=== PATIENT | female | born 1955 | race Caucasian/White ===

== ENCOUNTER 2016-04-10 08:26 | Day surgery (SDC) | payer MEDICARE, BC ==
[2016-04-04 11:39] VITALS: BMI 29.5
[~2016-04-10 08:26] MED LIST: LACTATED RINGERS 1,000 ML IV SCH
[2016-04-10 09:13] VITALS: TEMP 97.1
[2016-04-10] MEDS ORDERED: LIDOCAINE 1% 20 ML VIAL (10MG/ML) FOR IV START INTRADERMA ONE (09:24)
[2016-04-10] MEDS ORDERED: fentaNYL (PF) 50 MCG/ML 2 ML AMP ONE (10:43)
[2016-04-10] MEDS ORDERED: PROPOFOL 10 MG/ML 20 ML VIAL IV ONE (10:43)
[2016-04-10] MEDS ORDERED: LIDOCAINE 1% INJ 10MG/ML (20 ML MDV) ONE (10:43)
--- NOTE | 2016-04-10 10:51 | P.GSHP ---
History of Present Illness H&P Date: 04/10/16 Chief Complaint: Abdominal pain, GERD, screening colonoscopy This a 60-year-old female referred from Andrea Morrison. Patient presents today for EGD and colonoscopy. She's had issues with GERD. And left sided abdominal pain and epigastric pain. Her last colonoscopy was approximately 8 years ago. - Constitutional Constitutional: Reports as per HPI Past Medical History Past Medical History: CVA/TIA, GERD/Reflux, Hyperlipidemia Additional Past Medical History / Comment(s): TIA August 2014 - occ. left leg and arm tingling, herniated disk back and neck, " sometimes it takes longer to get words out", hayfever, abdominal pain History of Any Multi-Drug Resistant Organisms: None Reported Past Surgical History: Bladder Surgery, Breast Surgery, Cholecystectomy, Hysterectomy Additional Past Surgical History / Comment(s): RIGHT BREAST BX, bladder suspension, surgery as for colapsed lung Past Anesthesia/Blood Transfusion Reactions: No Reported Reaction Past Psychological History: Anxiety, Depression Additional Psychological History / Comment(s): . Smoking Status: Current some day smoker Past Alcohol Use History: Occasional Additional Past Alcohol Use History / Comment(s): stated a pack will last a week Past Drug Use History: None Reported - Past Family History Father Family Medical History: Cancer Additional Family Medical History / Comment(s): stomach. Mother Family Medical History: Cancer Additional Family Medical History / Comment(s): breast Sister(s) Family Medical History: Cancer Additional Family Medical History / Comment(s): cancer Medications and Allergies Home Medications Medication Instructions Recorded Confirmed Type ALPRAZolam [Xanax] 1 mg PO TID 09/14/14 04/10/16 History Simvastatin [Zocor] 20 mg PO HS 09/14/14 04/10/16 History Ibuprofen [Motrin] 800 mg PO BID PRN 12/13/15 04/04/16 History Meloxicam [Mobic] 7.5 mg PO DAILY 12/13/15 04/04/16 History Topiramate [Topamax] 50 mg PO DAILY 12/13/15 04/10/16 History Fluticasone Nasal [place] [Flonase 2 spr EA NOSTRIL DAILY PRN 03/25/16 04/10/16 History Nasal [place]] Hydrocodone/Acetaminophen [[place] 1 tab PO TID PRN 04/04/16 04/10/16 History 10-325] Multivitamins, Thera [Multivitamin] 2 tab PO DAILY 04/04/16 04/10/16 History Allergies Allergy/AdvReac Type Severity Reaction Status Date / Time No Known Allergies Allergy Verified 04/04/16 11:27 Surgical - Exam Vital Signs Temp Pulse Resp BP Pulse Ox 97.1 F L 86 18 147/84 99 04/10/16 09:12 04/10/16 09:12 04/10/16 09:12 04/10/16 09:12 04/10/16 09:12 - General well developed, no distress - Eyes PERRL - ENT normal pinna - Neck no masses - Respiratory normal expansion - Cardiovascular Rhythm: regular - Abdomen Mild left upper quadrant pain. Abdomen: soft Assessment and Plan Plan: GERD, epigastric and left upper quadrant pain. We'll perform EGD and screening colonoscopy.
--- NOTE | 2016-04-10 11:26 | P.OP ---
Date of Procedure: 04/10/16 Preoperative Diagnosis: Abdominal pain, GERD, screening colonoscopy Postoperative Diagnosis: Duodenitis Mild antral gastritis Small had a hernia Esophagitis Mild diverticulosis Procedure(s) Performed: Colonoscopy EGD Anesthesia: MAC Surgeon: Geoff Desai Pathology: other (Duodenum, antrum, esophagus) Condition: stable Disposition: PACU Description of Procedure: The patient's placed on the endoscopy table in the lateral position. She received IV sedation. The gastroscope some placed oropharynx and passed into the esophagus and into the stomach. Scope was then placed through the pylorus. The first and second portion of the duodenum appeared inflamed. A biopsies performed. Scope was then brought back the antrum this. Mildly inflamed. The scope was unretroflexed and remainder stomach appeared normal. There was a small hiatal hernia. The GE junction was at 40 cm. The distal esophagus appeared mildly inflamed and this was biopsied. The proximal esophagus appeared normal. Scope was withdrawn for patient. Next digital rectal exam was performed which revealed no abnormalities. The flexible colonoscope was then placed patient anus passed throughout the entire colon. The ileocecal valve was visualized. The cecum, ascending and transverse colon appeared normal. In the descending colon there is mild diverticular changes. The sigmoid colon had some mild diverticular changes. Scope was brought back the rectum and this appeared normal. Scope withdrawn the patient.
[2016-04-10 11:41] VITALS: BP 150/78; PULSE 70; RESP 18
== END 2016-04-10 12:05 | disposition home or self-care (01) ==
LOC: ORWHC2ENDO 08:26
PROVIDERS: ATTEND Surgery
DX: Z12.11 Encounter for screening for malignant neoplasm of colon (principal); K57.30 Diverticulosis of large intestine without perforation or abscess without bleeding; K44.9 Diaphragmatic hernia without obstruction or gangrene; K29.80 Duodenitis without bleeding; F17.200 Nicotine dependence, unspecified, uncomplicated; E78.5 Hyperlipidemia, unspecified; Z86.73 Personal history of transient ischemic attack (TIA), and cerebral infarction without residual deficits; F41.9 Anxiety disorder, unspecified; F32.9 Major depressive disorder, single episode, unspecified
CPT/HCPCS: 88305; 88342; 43239; J2001; J3010; J2704; G0121; 99153

== ENCOUNTER → 2017-06-25 | Outpatient (CLI) | payer MEDICARE, BC ==
--- NOTE | 2017-06-25 16:19 | XR ---
EXAMINATION TYPE: XR chest 2V DATE OF EXAM: 06/25/2017 COMPARISON: NONE HISTORY: Chest pain TECHNIQUE: Frontal and lateral views of the chest are obtained. FINDINGS: Patient is rotated. There is no focal air space opacity, pleural effusion, or pneumothorax seen. The cardiac silhouette size is within normal limits. The osseous structures are intact. IMPRESSION: No acute cardiopulmonary process.
[2017-06-25 16:23] LABS: Basophils % (A) 0 %; Eosinophils # (A) 0.1 k/uL (0-0.7); Eosinophils % (A) 1 %; HCT 42.1 % (34.0-46.0); HGB 13.7 gm/dL (11.4-16.0); Lymphocytes # (A) 2.1 k/uL (1.0-4.8); Lymphocytes % (A) 30 %; MCHC 32.5 g/dL (31.0-37.0); MCV 98.5 fL (80.0-100.0); Mean Platelet Volume 8.2; Monocytes # (A) 0.3 k/uL (0-1.0); Monocytes % (A) 5 %; Neutrophils # (A) 4.4 k/uL (1.3-7.7); Neutrophils % (A) 62 %; Platelet Count 295 k/uL (150-450); RBC 4.28 m/uL (3.80-5.40); RDW 13.2 % (11.5-15.5)
[2017-06-25 16:30] LABS: ALT 20 U/L (9-52); AST 27 U/L (14-36); Albumin 4.4 g/dL (3.5-5.0); Alkaline Phosphatase 102 U/L (38-126); Anion Gap 10 mmol/L; Blood Urea Nitrogen 10 mg/dL (7-17); Calcium 9.9 mg/dL (8.4-10.2); Carbon Dioxide 28 mmol/L (22-30); Chloride 105 mmol/L (98-107); Cholesterol 215 mg/dL (<200); Glucose 94 mg/dL (74-99); HDL Cholesterol 55 mg/dL (40-60); LDL Cholesterol,Calculated 97 mg/dL (0-99); Potassium 4.5 mmol/L (3.5-5.1); Sodium 143 mmol/L (137-145); Total Bilirubin 0.3 mg/dL (0.2-1.3); Total Protein 7.3 g/dL (6.3-8.2); Triglycerides 314 mg/dL (<150)
[2017-06-26 04:02] LABS: Hemoglobin A1C 5.6 % (4.0-6.0)
== END | disposition home or self-care (01) ==
LOC: RADXRMAIN 15:36
PROVIDERS: ATTEND Family Medicine
DX: R07.9 Chest pain, unspecified (principal); I10 Essential (primary) hypertension; Z79.899 Other long term (current) drug therapy
CPT/HCPCS: 36415; 71046; 80053; 80061; 83036; 84443; 85025; 85379

== ENCOUNTER → 2017-11-03 | Outpatient (CLI) | payer MEDICARE, BC ==
--- NOTE | 2017-11-03 17:23 | BD ---
EXAMINATION TYPE: Axial Bone Density DATE OF EXAM: 11/03/2017 COMPARISON: 12.13.2012 CLINICAL HISTORY: 62 YR OLD FEMALE.....ICD-10 CODE: N95.1 POST MENOPAUSAL SYMPTOMS Height: 60.1 Weight: 160 FRAX RISK QUESTIONS: History of Fracture in Adulthood: YES Secondary Osteoporosis: YES 3. 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 Bone mineral density as measured about the Lumbar spine is: ----- L1-L4(G/cm2): 0.978 T Score Values are as follows: ----- L1: -1.0 ----- L2: -2.0 ----- L3: -1.8 ----- L4: -2.0 ----- L1-L4: -1.7 Bone mineral density has: Decreased -8.2% since study of: 12.13.2012 Bone mineral density about the R hip (g/cm2): 0.722 Bone mineral density about the L hip (g/cm2): 0.793 T Score values are as follows: -----R Neck: -2.7 -----L Neck: -2.3 -----R Total: -2.3 -----L Total: -1.7 Bone mineral density has: Decreased -5.6% since study of: 12.13.2012 FRAX%s: THERE IS A 22.3% CHANCE OF A MAJOR OSTEOPOROTIC FX AND A 2.9% FOR HIP FX.....PROBABILITY O F FX IN 10 YRS TIME IMPRESSION: Osteoporosis (T Score less than -2.5). There is increased fracture risk and therapy is usually indicated based on age. Re-Screen 1-2 years. NOTE: T-SCORE=SD OF THE YOUNG ADULT MEAN.
== END | disposition home or self-care (01) ==
LOC: RADBDWWP 15:12
PROVIDERS: ATTEND Family Medicine
DX: M81.0 Age-related osteoporosis without current pathological fracture (principal)
CPT/HCPCS: 77080

== ENCOUNTER → 2018-01-21 | Outpatient (CLI) | payer MEDICARE, BC ==
--- NOTE | 2018-01-21 18:12 | CT ---
EXAMINATION TYPE: CT abdomen pelvis wo con DATE OF EXAM: 01/21/2018 COMPARISON: 03/25/2016 HISTORY: Left side groin and back pain. CT DLP: 511.8 mGycm Automated exposure control for dose reduction was used. TECHNIQUE: Helical acquisition of images was performed from the lung bases through the pelvis. FINDINGS: Lung bases are clear. There is no pleural effusion. Heart size is normal. There is no pericardial eff usion. There is small hiatal hernia. Liver spleen pancreas appear normal. Bile ducts are not dilated. There is no adrenal mass. Kidneys sh ow normal size and contour. There is no hydronephrosis. Ureters are not dilated. There is no retroper itoneal adenopathy. There are multiple sigmoid diverticula. There is no evidence of diverticulitis. T here is no evidence of bowel obstruction. Appendix is not seen. There is no sign of appendicitis. There is small umbilical hernia that contains fat. There is no inguinal hernia. There is no mesenteri c adenopathy or edema. There is no evidence of free air. Lumbar spine and bony pelvis appear intact. There is no ascites. IMPRESSION: THERE IS SIGMOID DIVERTICULOSIS WITHOUT DIVERTICULITIS. NO SIGN OF ACUTE ABDOMEN AND PELVIS. NO ADVER SE CHANGE COMPARED TO OLD EXAM.
== END | disposition home or self-care (01) ==
LOC: RADCTMAIN 15:57
PROVIDERS: ATTEND Family Medicine
DX: K57.30 Diverticulosis of large intestine without perforation or abscess without bleeding (principal)
CPT/HCPCS: 74176

== ENCOUNTER 2018-03-18 07:25 | Day surgery (SDC) | payer MEDICARE, BC ==
[2018-03-16 11:53] VITALS: BMI 29.7
[~2018-03-18 07:25] MED LIST changes: +LIDOCAINE 1% 20 ML VIAL (10MG/ML) FOR IV START INTRADERMA PRN
[2018-03-18 07:39] VITALS: TEMP 96.8
[2018-03-18] MEDS ORDERED: LIDOCAINE 1% INJ 10MG/ML (20 ML MDV) ONE (08:35)
[2018-03-18] MEDS ORDERED: PROPOFOL 10 MG/ML 20 ML VIAL IV ONE (08:35)
[2018-03-18 09:28] VITALS: RESP 16
--- NOTE | 2018-03-18 09:33 | P.PCN ---
Date of Procedure: 03/18/18 Description of Procedure: BRIEF HISTORY: Patient is a 62-year-old pleasant who presents for follow-up after being seen in evaluation in the clinic for suspected diverticulitis. The patient had presented with complaints of abdominal pain and was empirically treated with antibiotic therapy. Her symptoms continued which included both abdominal pain as well as an increased frequency of bowel movements. The patient subsequently had computed tomography scan in evaluation which showed diverticulosis without diverticulitis. The patient was previously tried on Questran therapy which cause constipation as well as Bentyl therapy for her abdominal pain which she also reports causes constipation. Her last colonoscopy was 2 years ago per her history with polypectomy at that time. PROCEDURE PERFORMED: Colonoscopy with random biopsy and polypectomy. PREOPERATIVE DIAGNOSIS: Diverticulitis, change in bowel habits, abdominal pain. ESTIMATED BLOOD LOSS: Minimal. IV sedation per Anesthesia. PROCEDURE: After informed consent was obtained, the patient, was brought into the endoscopy unit. IV sedation was administered by Anesthesia under continuous monitoring. Digital rectal examination was normal. Initially the Olympus CF- 190 flexible video colonoscope was then inserted in the rectum, gradually advanced into the cecum without any difficulty. Careful examination was performed as the scope was gradually being withdrawn. Ileocecal valve and the appendiceal orifice were visualized and appeared normal. Prep was excellent. Mucosa of the cecum, ascending colon, transverse colon, descending colon, sigmoid colon, and rectum was significant for scattered areas of mild erythema and superficial ulceration with biopsies taken in the right, transverse and left colon as well as rectum. There was a small 4 mm polyp in the ascending colon which was removed with cold forceps Retroflexion was performed in the rectum and no lesions were seen. The patient tolerated the procedure well. IMPRESSION: Scattered areas of mild erythema and superficial ulceration throughout the colon with random biopsies taken in the right, transverse, and left colon as well as the rectum. Ascending polyp removed via cold snare. RECOMMENDATIONS: Findings of this examination were discussed with the patient internal . Await pathology. Follow up in the GI clinic. Avoid NSAID use. Further management pending findings of biopsies..
[2018-03-18 09:48] VITALS: BP 146/80; PULSE 68
== END 2018-03-18 10:13 | disposition home or self-care (01) ==
LOC: ORWHC2ENDO 07:25
PROVIDERS: ATTEND Internal Medicine
DX: D12.2 Benign neoplasm of ascending colon (principal); K63.3 Ulcer of intestine; K57.90 Diverticulosis of intestine, part unspecified, without perforation or abscess without bleeding; E78.5 Hyperlipidemia, unspecified; M54.2 Cervicalgia; M54.5 Low back pain; G89.29 Other chronic pain; K21.9 Gastro-esophageal reflux disease without esophagitis; Z79.1 Long term (current) use of non-steroidal anti-inflammatories (NSAID); Z79.899 Other long term (current) drug therapy; Z79.891 Long term (current) use of opiate analgesic; Z91.09 Other allergy status, other than to drugs and biological substances; Z86.73 Personal history of transient ischemic attack (TIA), and cerebral infarction without residual deficits
CPT/HCPCS: 88305; 45380; J2001; J2704

== ENCOUNTER → 2018-08-25 | Day surgery (SDC) | payer MEDICARE, BC ==
[2018-08-25 13:03] VITALS: RESP 16; BMI 28.7
--- NOTE | 2018-08-25 16:02 | USB ---
EXAMINATION TYPE: US biopsy breast VAD RT DATE OF EXAM: 08/25/2018 CLINICAL HISTORY: R92.8 ABN MAMM. TECHNIQUE: Ultrasound guided core biopsy of right breast. COMPARISON: Ultrasound same day FINDINGS: After informed consent the skin overlying a suitable path to the patient's right breast mas s at the approximate 3:00 position was localized with ultrasound. 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 Lidocaine was used for local anesthesia. Under ultrasound guidance, a 12-gauge vacuum assisted biopsy gun device was used to obtain 5 core sriram ples. Following this, a biopsy clip was left in lesion. The patient tolerated the procedure well without any immediate complication. The patient was kept in the radiology department for short stay after the procedure and then discharged home in stable condi tion. IMPRESSION: Successful, uncomplicated ultrasound guided core biopsy of area of concern in the right b reast, full pathology results to follow.
[2018-08-25 16:09] VITALS: BP 125/81; PULSE 73; TEMP 97.5
--- NOTE | 2018-08-26 08:34 | USB ---
Reason for exam: clinical finding. History: Family history of breast cancer in mother at age 50, breast cancer in sister at age 50, and breast cancer in cousin at age 40. Indicated problem(s): lump or thickening in the right breast. Physical Findings: Nurse Summary: Patient complains of right breast lump x 1 months, tender with palpation (nurse mj). US Breast Limited RT Right limited breast ultrasound including focal area of concern, retroareolar and axilla demonstrates a 0.9 x 0.4 x 0.9cm hypoechoic lesion at 4 o'clock. These results were verbally communicated with the patient and result sheet given to the patient on 08/25/18. ASSESSMENT: Suspicious, BI-RAD 4 RECOMMENDATION: Ultrasound core biopsy of the right breast. Scheduled for stereotactic core biopsy today, 08/25/18, will do ultrasound core biopsy to follow.
--- NOTE | 2018-08-26 12:19 | MM ---
EXAMINATION TYPE: MG stereo VAD BX RT DATE OF EXAM: 08/25/2018 COMPARISON: Mammogram 07/22/2018 outside institution CLINICAL HISTORY: Abnormal mammogram TECHNIQUE: Stereotactic guided core biopsy of right breast. FINDINGS: The procedure of stereotactic guided core biopsy was explained to the patient. Benefits, a lternatives, and risks were discussed. An informed consent was then obtained. The shortness pathway for biopsy was chosen. Shortness pathway was cephalad to caudal approach. I pe rformed the localization using the stereotactic mammotome unit. Skin overlying a quantity calcificati ons was localized and the overlying skin prepped and draped. Lidocaine used for local anesthesia. 5 c ore specimens were subsequently obtained through the 13-gauge needle. Following the procedure hemosta sis achieved and clip deployment. No immediate complication. The patient tolerated the procedure well without any immediate complication. The patient was kept in the radiology department for short stay after the procedure and then discharged home in stable condi tion. Targeted calcifications are identified in specimen mammogram. Post biopsy mammogram shows the clip to appear in satisfactory position relative to the targeted area of concern on the preprocedure images. IMPRESSION: SUCCESSFUL, UNCOMPLICATED STEREOTACTIC GUIDED CORE BIOPSY OF AREA OF CONCERN IN THE right BREAST, FUL L PATHOLOGY RESULTS TO FOLLOW.
== END ==
LOC: RADUSWWP 11:11
PROVIDERS: ATTEND Surgery
DX: C50.311 Malignant neoplasm of lower-inner quadrant of right female breast (principal); Z85.3 Personal history of malignant neoplasm of breast; D24.1 Benign neoplasm of right breast; N62 Hypertrophy of breast; R92.1 Mammographic calcification found on diagnostic imaging of breast; Z80.3 Family history of malignant neoplasm of breast; Z91.048 Other nonmedicinal substance allergy status
CPT/HCPCS: 88305; 88342; 88341; 19081; 19083; 76642; A4648 ×2; J2001

== ENCOUNTER → 2022-11-18 | Outpatient (CLI) | payer MEDICARE, BC ==
--- NOTE | 2022-11-18 15:16 | XR ---
EXAMINATION TYPE: XR ankle complete LT DATE OF EXAM: 11/18/2022 3:07 PM INDICATION: Patient age:Female; 67 years old; Reason for study: S93.402A SPRAIN OF UNSPECIFIED LIGAMENT OF LEFT AN; [facility]. COMPARISON: None TECHNIQUE: The left ankle is imaged in frontal, lateral and oblique projections. FINDINGS/IMPRESSION: Spiral fracture through the left distal fibula with 1-2 mm displacement. No additional fractures iden tified. Remote injury to the medial malleolus deltoid ligament.
== END | disposition home or self-care (01) ==
LOC: RADXRMAIN 14:49
PROVIDERS: ATTEND Family Medicine
DX: S82.832A Other fracture of upper and lower end of left fibula, initial encounter for closed fracture (principal); S93.402A Sprain of unspecified ligament of left ankle, initial encounter; X58.XXXA Exposure to other specified factors, initial encounter

== ENCOUNTER → 2023-04-20 | Outpatient (CLI) | payer MEDICARE, BC ==
[2023-04-20 17:13] LABS: African American GFR (CKD) >90 (>60 ml/min/1.73 sqM); Blood Urea Nitrogen 8 mg/dL (7-17); Non-African American GFR(CKD) >90 (>60 ml/min/1.73 sqM)
== END | disposition home or self-care (01) ==
LOC: RADCTMAIN 16:14
PROVIDERS: ATTEND Family Medicine
DX: R91.8 Other nonspecific abnormal finding of lung field (principal)
CPT/HCPCS: 82565; 84520

== ENCOUNTER → 2023-04-22 | Outpatient (CLI) | payer MEDICARE, BC ==
--- NOTE | 2023-04-22 14:42 | CT ---
EXAMINATION TYPE: CT chest wo con CT DLP: 283.9 mGycm, Automated exposure control for dose reduction was used. DATE OF EXAM: 04/22/2023 1:14 PM COMPARISON: None CLINICAL INDICATION:Female, 68 years old with history of R91.8 LUNG MASS, lung mass TECHNIQUE: Multiple axial images were obtained through the chest. Sagittal and coronal reformats were created for review. Contrast used: mL of (None if empty) Oral contrast used: (None if empty) FINDINGS: LUNGS/ PLEURA: Mild emphysema changes are present. No focal consolidation, pneumothorax or pleural ef fusion. No lung masses visualized. AIRWAY: Patent and unremarkable. HEART: Size within normal limits. MEDIASTINUM: No gross evidence of adenopathy. VASCULATURE: No aortic aneurysm. MUSCULOSKELETAL: Moderate disc degeneration changes are present throughout the thoracolumbar spine. SOFT TISSUES/LYMPH NODES: Unremarkable. LOWER NECK: No significant findings. UPPER ABDOMEN: No significant findings. IMPRESSION: 1. No evidence for lung mass. No lymphadenopathy. 2. Mild emphysema changes. Follow up recommendations for incidental pulmonary nodules, if there are any, are per [employer] or [employer]. [email or web address]/[email or web address]?lang=us
== END | disposition home or self-care (01) ==
LOC: RADCTMAIN 12:50
PROVIDERS: ATTEND Family Medicine
DX: J43.9 Emphysema, unspecified (principal); R91.8 Other nonspecific abnormal finding of lung field
CPT/HCPCS: 71250

== ENCOUNTER → 2024-01-06 | Outpatient (CLI) | payer MEDICARE, BC ==
[2024-01-06 13:44] VITALS: BP 119/77; PULSE 79; RESP 20; TEMP 98.9
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
== END ==
LOC: PNWHC3 12:53
PROVIDERS: ATTEND Specialist
DX: M54.2 Cervicalgia
CPT/HCPCS: 99202

== ENCOUNTER → 2024-01-11 | Outpatient (CLI) | payer MEDICARE, BC ==
--- NOTE | 2024-01-11 19:48 | MR ---
EXAMINATION TYPE: MR cervical spine wo/w con DATE OF EXAM: 01/11/2024 4:44 PM CLINICAL INDICATION: Female, 68 years old with history of M50.30 OTHER CERVICAL DISC DEGENERATION, UN SP CERVICAL REGIO; [facility], COMPARISON: None. TECHNIQUE: Multi planar, multi sequence imaging was performed utilizing: T1-weighted, T2-weighted, an d turbo inversion recovery imaging of the cervical spine. IV Contrast: cc (none if empty) FINDINGS: Alignment: The cervical vertebral bodies have preserved heights. Alignment is within normal limits gi hyun patient positioning. Bones: Osteophytes and disc space narrowing most pronounced at the C5-C7 vertebral levels.No abnormal postcontrast enhancement. Cord: The spinal cord is unremarkable with regards to their signal intensity and morphology. No abnormal postcontrast enhancement. Discs: Intervertebral disc signal is maintained. C2-C3: No significant disc pathology. The spinal canal is patent. No neural foraminal stenosis. C3-C4: No significant disc pathology. The spinal canal is patent. Bilateral facet and uncovertebral joint arthropathy are present with mild right neural foraminal stenosis. The left neural foramen is p atent. C4-C5: No significant disc pathology. The spinal canal is patent. Bilateral facet and uncovertebral joint arthropathy are present with mild right neural foraminal stenosis. The left neural foramen is p atent. C5-C6: A disc osteophyte complex is present with mild spinal canal stenosis. Bilateral facet and unc overtebral joint arthropathy are present with mild to moderate bilateral neural foraminal stenosis. C6-C7: No significant disc pathology. The spinal canal is patent. No neural foraminal stenosis. C7-T1: No significant disc pathology. The spinal canal is patent. No neural foraminal stenosis. Other: None. IMPRESSION: 1. No evidence for disc herniation or significant spinal canal stenosis. No abnormal postcontrast enh ancement. 2. Mild disc degeneration with associated osteoarthritic changes. No foraminal stenosis worse at C5-C 6 with at least mild to moderate stenosis. [facility], Workstation: [id number], 01/11/2024 7:45 PM
== END | disposition home or self-care (01) ==
LOC: RADMRIMAIN 15:53
PROVIDERS: ATTEND Family Medicine
DX: M50.30 Other cervical disc degeneration, unspecified cervical region
CPT/HCPCS: 72156

== ENCOUNTER → 2024-01-25 | Outpatient (CLI) | payer MEDICARE, BC ==
[2024-01-25 10:49] VITALS: BP 112/74; PULSE 98; RESP 16; TEMP 99.5
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
== END ==
LOC: PNWHC3 01-20 13:50
PROVIDERS: ATTEND Specialist
DX: M54.12 Radiculopathy, cervical region
CPT/HCPCS: 99211

== ENCOUNTER 2024-02-12 09:41 | Day surgery (SDC) | payer MEDICARE, BC ==
[2024-02-09 14:25] VITALS: BMI 28.1
[2024-02-12 10:18] VITALS: RESP 16; TEMP 97
[2024-02-12] MEDS: IV FLUID CONTINUATION 1,000 ML IV ONE ×2 (10:18→11:38)
[2024-02-12] MEDS: LACTATED RINGERS 1,000 ML IV SCH (10:26)
[2024-02-12] MEDS ORDERED: ROPIVACAINE 5MG/ML 20ML VIAL ONE (11:13)
[2024-02-12] MEDS ORDERED: MIDAZOLAM 2 MG/2 ML VIAL ONE (11:13)
--- NOTE | 2024-02-12 11:31 | P.PCN ---
Date of Procedure: 02/12/24 Surgeon: Rico Thomason Pathology: none sent Condition: stable Disposition: PACU Description of Procedure: PROCEDURE: Bilateral medial branch block for the medial branches: C4,C5 and C6 with Fluroscopy [place] Diagnosis: Cervical spondylosis without myelopathy ANESTHESIA: Local with 1% lidocaine; IV moderate conscious sedation using 2 mg of Versed only Sedation time:[id number] EBL: Minimal PROCEDURE INDICATION: The patient with neck pain secondary to cervical arthropathy who had more than 50% relief of her pain with previous diagnostic cervical medial branch block. PROCEDURE DESCRIPTION / TECHNIQUE: The patient was seen and identified in the preoperative area. Risks, benefits, complications, and alternatives were discussed with the patient, the patient agreed to proceed with the procedure and signed the consent. IV was started. Vital signs remained stable throughout the procedure. Patient was taken to the OR and time out was completed. The patient was placed in the supine position on the procedure table. The cervical area was prepped and draped in the usual sterile fashion. Critical pause was taken. Vital signs were closely monitored during the procedure. Conscious sedation was used during the procedure to decrease patients anxiety. Using cross-table lateral fluoroscopy, the center of the trapezoid-shaped cervical pillars of C4, C5 and C6 were identified, marked, and localized with 1% lidocaine. Subsequently, a 25 guage3-1/2 inch [place]ke spinal needle was advanced guided by fluoroscopy to the target points mentioned above. after contacting bone at the above-mentioned target points I injected 0.5 MLS of ropivacaine 0.5% at each level. [place] were removed. the left side was done in the same manner.Skin was cleansed and bandages were applied. COMPLICATIONS: No acute complications. COMMENTS: A copy of needle placement was saved to the C-arm machine at the radiology department. DISPOSITION / PLANS: The patient was placed in a supine position and transferre d to the recovery area in a stable condition for observation and was discharged from the recovery room after meeting discharge criteria. Home discharge instructions given to the patient by the staff.
--- NOTE | 2024-02-12 11:43 | FL ---
Intraoperative/procedural fluoroscopic services were provided for cervical pain management injection. Total fluoroscopy time is 28.2 seconds with a total of 8 submitted images to PACS. Total DAP 0.51307 mGym2. Please see the operative note for further details. [facility], , 02/12/2024 11:41 AM
[2024-02-12 11:53] VITALS: BP 151/85; PULSE 73
== END 2024-02-12 12:09 | disposition home or self-care (01) ==
LOC: ORPAIN 09:41
PROVIDERS: ATTEND Anesthesiology
DX: M47.812 Spondylosis without myelopathy or radiculopathy, cervical region (principal); Z85.3 Personal history of malignant neoplasm of breast; Z88.8 Allergy status to other drugs, medicaments and biological substances
CPT/HCPCS: 99152

== ENCOUNTER → 2024-02-24 | Outpatient (CLI) | payer MEDICARE, BC ==
[2024-02-24 11:33] VITALS: BP 101/69; PULSE 89; RESP 16
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
== END ==
LOC: PNWHC3 11:09
PROVIDERS: ATTEND Specialist
DX: M54.12 Radiculopathy, cervical region (principal); Z87.891 Personal history of nicotine dependence; Z91.041 Radiographic dye allergy status
CPT/HCPCS: 99211

== ENCOUNTER 2024-03-17 12:11 | Day surgery (SDC) | payer MEDICARE, BC ==
[2024-03-15 15:09] VITALS: BMI 27.9
[~2024-03-17 12:11] MED LIST changes: -LIDOCAINE 1% 20 ML VIAL (10MG/ML) FOR IV START INTRADERMA PRN
[2024-03-17 13:00] VITALS: TEMP 97.9
[2024-03-17] MEDS: IV FLUID CONTINUATION 1,000 ML IV ONE ×2 (13:00→13:52)
[2024-03-17] MEDS ORDERED: fentaNYL (PF) 50 MCG/ML 2 ML AMP ONE (13:26)
[2024-03-17] MEDS ORDERED: MIDAZOLAM 2 MG/2 ML VIAL ONE (13:26)
[2024-03-17] MEDS ORDERED: ROPIVACAINE 5MG/ML 20ML VIAL ONE (13:26)
--- NOTE | 2024-03-17 13:47 | P.PCN ---
Date of Procedure: 03/17/24 Procedure(s) Performed: PREOPERATIVE DIAGNOSIS: 1-Cervical Spondylosis with Facet Arthropathy.without myelopathy. 2-cervical degenerative disc disease POSTOPERATIVE DIAGNOSIS:1-cervical spondylosis with facet arthropathy without myelopathy. 2-cervical degenerative disc disease PROCEDURES: Diagnostic bilateral C4 , C5 , and C6 medial branch blocks, with fluoroscopic guidance (fluoroscopy images available in radiology department ) ( to target the facet joint at bilateral C4- 5 , C5- 6 )#2nd ANESTHESIA: moderate sedation with Versed 2 mg , and fentanyl 100 micrograms (sedation was started 13:26 , end 13:42 ) EBL: Minimal PROCEDURE INDICATION: The patient with neck pain secondary to cervical arthropathy unresponsive to more conservative treatments. PROCEDURE DESCRIPTION / TECHNIQUE: The patient was seen and identified in the preoperative area. Risks, benefits, complications, and alternatives were discussed with the patient, the patient agreed to proceed with the procedure and signed the consent. IV was started. Vital signs remained stable throughout the procedure. Patient was taken to the OR and time out was completed. The patient was placed in the prone position on the procedure table. A pillow was placed under the patients chest to increase the cervical interlaminar space. The cervical area was prepped and draped in the usual sterile fashion. Critical pause was taken. Vital signs were closely monitored during the procedure. Conscious sedation was used during the procedure to decrease patients anxiety. Using cross-table lateral fluoroscopy, the centroid of the trapezoid of right C4 , C5,C6, was identified, marked, and localized with 1% lidocaine 1 ml at each level for skin and Sub Q infiltrations . Subsequently, a 22 G 3 spinal needle was advanced guided by fluoroscopy to the centroid of the trapezoid of Right C4 , C5, C6 . [place] tip position was confirmed at the centroid of the trapezoids of Right C4 , C5 ,C6 with anteroposterior fluoroscopy. Subsequently,1.5 ml of preservative-free Ropivacaine 0.5% and half ml was injected after negative aspiration for blood and CSF. [place] was then removed intact the same procedure was repeated at the left C4 , C5 , and C6 levels. COMPLICATIONS: No acute complications. DISPOSITION / PLANS: The patient was placed in a supine position and transferred to the recovery area in a stable condition for observation and was discharged from the recovery room after meeting discharge criteria. Home discharge instructions given to the patient by the staff. The patient was reexamined prior to discharge. The patient will schedule a follow up in the clinic in 2-4 weeks.
--- NOTE | 2024-03-17 13:51 | FL ---
Intraoperative/procedural fluoroscopic services were provided for bilateral cervical facet block. Tot al fluoroscopy time is 27.4 seconds with a total of 5 submitted images to PACS. Total DAP 0.16578 mGy m2. Please see the operative note for further details. [facility], , 03/17/2024 1:49 PM
[2024-03-17 14:10] VITALS: RESP 16
[2024-03-17 14:12] VITALS: BP 135/77; PULSE 73
== END 2024-03-17 14:39 | disposition home or self-care (01) ==
LOC: ORPAIN 12:11
PROVIDERS: ATTEND Anesthesiology
DX: M47.812 Spondylosis without myelopathy or radiculopathy, cervical region (principal); Z88.8 Allergy status to other drugs, medicaments and biological substances
CPT/HCPCS: 64490; 64491 ×2; J2250; J3010; J2795; 99152

== ENCOUNTER → 2024-04-18 | Outpatient (CLI) | payer MEDICARE, BC ==
[2024-04-18 11:59] VITALS: BP 112/65; PULSE 91; RESP 18; TEMP 97.8
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
== END ==
LOC: PNWHC3 11:02
PROVIDERS: ATTEND Specialist
DX: M54.12 Radiculopathy, cervical region (principal); G89.29 Other chronic pain; Z87.891 Personal history of nicotine dependence; Z91.041 Radiographic dye allergy status
CPT/HCPCS: 99211

== ENCOUNTER 2024-05-31 11:58 | Day surgery (SDC) | payer MEDICARE, BC ==
[2024-05-27 11:37] VITALS: BMI 22.0
[2024-05-31 12:55] VITALS: RESP 16; TEMP 97.4
[2024-05-31] MEDS: LACTATED RINGERS 1,000 ML IV SCH (12:57)
[2024-05-31] MEDS: IV FLUID CONTINUATION 1,000 ML IV ONE (13:02)
[2024-05-31] MEDS ORDERED: fentaNYL (PF) 50 MCG/ML 2 ML AMP ONE (13:06)
[2024-05-31] MEDS ORDERED: ROPIVACAINE 5MG/ML 20ML VIAL ONE (13:06)
[2024-05-31] MEDS ORDERED: MIDAZOLAM 2 MG/2 ML VIAL ONE (13:06)
[2024-05-31] MEDS ORDERED: DEXAMETHASONE SOD PHOSPHATE 10 MG/ML 1 ML VIAL ONE (13:06)
--- NOTE | 2024-05-31 13:38 | P.PCN ---
Date of Procedure: 05/31/24 Description of Procedure: Pre- and Post-operative Diagnosis: Cervical Facet Arthropathy/ cervical spondylosis without myelopathy Procedure: Radio Frequency Ablation (RFA) of right side cervical C4-C5, and C5- C6 level medial branch (total 2 levels) Surgeon: Jorge Alberto Cedillo Anesthesia: Local: 1% Lidocaine, IV sedation : Versed 2 mg, and fentanyl 100 mcg Sedation supervision timings: [id number] Complications: none Estimated blood loss: None Specimen removed: None Fluoroscopic image: Saved to patient electronic medical records. Indications for Procedure: The patient has been suffering from chronic neck pain, migraine headaches. The patient had significant pain relief after diagnostic medial branch block in the same levels, for two times. Came here for radiofrequency ablation for longer pain relief for longer pain relief. Procedure and Findings: The patient was seen and examined. The written informed consent was obtained after explaining all risks, benefits and alternatives of the procedure to the patient. The patient was brought to the procedure room and was placed in the prone position on the operating table. A pillow was placed under the upper chest. Standard anesthesia monitoring was done through out the procedure. Timeout was completed. The skin preparation was done with ChloraPrep, and draping was done in usual sterile fashion. Sterile technique was observed throughout the procedure. Under biplanar fluoroscopic guidance, right side cervical-4, 5 and 6 levels articular pillars were identified. 3 ml of 1% Lidocaine was injected with a 25 gauge needle to achieve adequate local anesthesia of the skin and subcutaneous tissue. A 20 mm RF needle with 10 mm active tip was placed and advanced targeting the center of the waist of the articular pillars keeping the fluoroscope in the AP view. A bony contact was obtained and then fluoroscope was changed to lateral view. Under direct fluoroscopic view, the needle was advanced close to the center of the "trapezoid area" formed by the articular pillars. The nerve stimulation was checked for all levels; it elicited only paraspinal muscle contraction, and was negative for any root stimulation. At each level, 0.5 ml of block solution injected after negative aspiration. The block solution containing containing 1 mL of 0.5% ropivacaine preservative-free mixed with 10 mg of dexamethasone . RFA was done at 80 degrees Celsius for 90 seconds. At the end of the procedure needle tips retracted more than centimeter and then injected 0.5 mL of 0.5% preservative-free ropivacaine for skin and subcutaneous tissue infiltration. The needles were removed intact, area was cleaned and bandages were applied. Disposition : The patient tolerated the procedure very well. The patient was transferred to the recovery room and remained stable until discharged home. The patient was given detailed discharge instructions for infection, bleeding, and increased pain at the injection site, and was advised to seek immediate medical attention should significant side effects develop. The patient scheduled with our Pain Clinic within 4 weeks for follow-up visit.
--- NOTE | 2024-05-31 13:48 | FL ---
Fluoroscopy INDICATION: Pain FINDINGS: Fluoroscopy time: 10.7 seconds. Total dose area product (DAP) in uGy*m?, mGy*cm? (or similar): 0.34968 Images obtained: 5. Images document needle displaced towards the cervical spine IMPRESSION: 1. Documentation of fluoroscopy. [facility], , 05/31/2024 1:46 PM
[2024-05-31 13:51] VITALS: BP 132/76; PULSE 75
== END 2024-05-31 14:08 | disposition home or self-care (01) ==
LOC: ORPAIN 11:58
DX: M47.812 Spondylosis without myelopathy or radiculopathy, cervical region (principal); M19.90 Unspecified osteoarthritis, unspecified site; K21.9 Gastro-esophageal reflux disease without esophagitis; J45.909 Unspecified asthma, uncomplicated; E03.9 Hypothyroidism, unspecified; G43.909 Migraine, unspecified, not intractable, without status migrainosus; F41.9 Anxiety disorder, unspecified; Z90.6 Acquired absence of other parts of urinary tract; Z90.11 Acquired absence of right breast and nipple; Z91.041 Radiographic dye allergy status; Z79.82 Long term (current) use of aspirin; Z79.890 Hormone replacement therapy; Z79.899 Other long term (current) drug therapy
CPT/HCPCS: 64633; 64634; 99152

== ENCOUNTER → 2024-06-30 | Outpatient (CLI) | payer MEDICARE, BC ==
[2024-06-30 13:31] VITALS: BP 118/74; PULSE 78; RESP 16; TEMP 97.3
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
== END ==
LOC: PNWHC3 11:59
PROVIDERS: ATTEND Specialist
DX: M47.22 Other spondylosis with radiculopathy, cervical region (principal); Z91.041 Radiographic dye allergy status; Z87.891 Personal history of nicotine dependence
CPT/HCPCS: 99211

== ENCOUNTER 2024-07-19 11:10 | Day surgery (SDC) | payer MEDICARE, BC ==
[2024-07-18 10:44] VITALS: BMI 28.3
[2024-07-19 12:09] VITALS: RESP 16; TEMP 97.5
[2024-07-19] MEDS: LACTATED RINGERS 1,000 ML IV SCH (12:09)
[2024-07-19] MEDS: LIDOCAINE 1% (10MG/ML) FOR IV START INTRADERMA STA (12:10)
[2024-07-19] MEDS: IV FLUID CONTINUATION 1,000 ML IV ONE ×2 (12:10→13:49)
[2024-07-19] MEDS ORDERED: fentaNYL (PF) 50 MCG/ML 2 ML AMP ONE (13:10)
[2024-07-19] MEDS ORDERED: MIDAZOLAM 2 MG/2 ML VIAL ONE (13:10)
[2024-07-19] MEDS ORDERED: ROPIVACAINE 5MG/ML 20ML VIAL ONE (13:10)
--- NOTE | 2024-07-19 13:52 | P.PCN ---
Description of Procedure: Preprocedure diagnosis. Cervical spondylosis. Cervical facet joint arthropathy. Postprocedure diagnosis. As above. Procedure done. Left C4-5, C5-6 facet joint (C4.5,6 medial branch of dorsal ramus ) radiofrequency ablation under fluoroscopic guidance. Anesthesia. IV sedation with versed 2mg and fentanyl 150 microgram. Continuous pulse ox, EKG, blood pressure and verbal communication was maintained with the patient in OR. Sedation time-start 1310 ,stop 1336 . Blood loss. None. Indication. Patient has got the diagnoses of cervical spondylolysis, facet joint arthropathy with neck pain. Diagnostic medial branch block relieved significant pain. Discussed with the patient procedure, alternatives, complications including infection, bleeding, nerve damage, paralysis all of which could be permanent. Patient understands and all questions are answered. Procedure note. After getting consent patient in OR in prone position. Back of the neck was prepped with chlorhexidine and draped in sterile fashion. After injecting 5 mL of plain 1% lidocaine subcutaneously, a 20-gauge RFA needle was introduced under tunnel vision of the fluoroscope AP view at the waist of the articular pillar (lateral mass) at C4 vertebral level. In the lateral view of the fluoroscope it was confirmed that the tip of the needle stayed within the dorsal half of the articular pillar (lateral mass). C4-5 facet joint was targeted by blocking C4 and C5 medial branch, C5-6 facet joint was targeted by blocking C5 and C6 medial branch . After subcutaneous injection of lidocaine, RFA needle were introduced under tunnel vision of the fluoroscope AP view at the waist of the articular pillars (lateral mass) at C5 vertebral level. In the lateral view of the fluoroscope it was confirmed that the tip of the needle stayed within the dorsal half of the articular pillar (lateral mass). After subcutaneous injection of lidocaine, RFA needle were introduced under tunnel vision of the fluoroscope AP view at the waist of the articular pillars (lateral mass) at C6 vertebral level. In the lateral view of the fluoroscope it was confirmed that the tip of the needle stayed within the dorsal half of the articular pillar (lateral mass). . After positive sensory and negative motor stimulation,injection of 1 ml of 0.5% Ropivacaine, radiofrequency ablation was done at 80 C's for 90 seconds. Second lesion was done at the same settings after rotating the needls 180 degrees. After the procedure needle was taken out and bandage was applied. Disposition. Patient tolerated the procedure well. No complication. Discharged home in stable condition.
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
[2024-07-19 14:19] VITALS: BP 118/73; PULSE 80
== END 2024-07-19 14:30 | disposition home or self-care (01) ==
LOC: ORPAIN 11:10
PROVIDERS: ATTEND Anesthesiology
DX: M47.812 Spondylosis without myelopathy or radiculopathy, cervical region (principal); Z88.8 Allergy status to other drugs, medicaments and biological substances
CPT/HCPCS: 64633; 64634; J2250; J3010; J2795; 99152

== ENCOUNTER → 2024-08-15 | Outpatient (CLI) | payer MEDICARE, BC ==
[2024-08-15 12:52] VITALS: BP 116/78; PULSE 75; RESP 16; TEMP 97.1
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
== END ==
LOC: PNWHC3 12:34
PROVIDERS: ATTEND Specialist
DX: M47.22 Other spondylosis with radiculopathy, cervical region (principal); Z87.891 Personal history of nicotine dependence; Z91.041 Radiographic dye allergy status
CPT/HCPCS: 70260; G0463; 99211

== ENCOUNTER → 2024-09-14 | Outpatient (CLI) | payer MEDICARE, BC ==
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
== END | disposition home or self-care (01) ==
LOC: RADMRIMAIN 14:21
PROVIDERS: ATTEND Specialist
DX: M54.81 Occipital neuralgia (principal); R90.82 White matter disease, unspecified
CPT/HCPCS: 70551

== ENCOUNTER → 2024-09-19 | Outpatient (CLI) | payer MEDICARE, BC ==
[2024-09-19 13:49] VITALS: BP 103/67; PULSE 76; RESP 16; TEMP 97.7
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
== END ==
LOC: PNWHC3 13:09
PROVIDERS: ATTEND Specialist
DX: M47.22 Other spondylosis with radiculopathy, cervical region (principal); M54.81 Occipital neuralgia; G44.86 Cervicogenic headache; Z79.890 Hormone replacement therapy; Z87.891 Personal history of nicotine dependence; Z91.041 Radiographic dye allergy status
CPT/HCPCS: 99212

== ENCOUNTER 2024-10-27 12:02 | Day surgery (SDC) | payer MEDICARE, BC ==
[2024-10-27 12:47] VITALS: TEMP 96.7
[2024-10-27] MEDS ORDERED: LACTATED RINGERS 1,000 ML IV SCH (12:50)
[2024-10-27] MEDS ORDERED: methylPREDNISolone ACETATE 80 MG/ML 1 ML VIAL ONE (14:03)
[2024-10-27] MEDS ORDERED: ROPIVACAINE 5 MG/ML 30 ML VIAL ONE (14:03)
--- NOTE | 2024-10-27 14:09 | P.PCN ---
Date of Procedure: 10/27/24 Procedure(s) Performed: Preoperative diagnoses= 1- Greater occipital neuralgia.2-cervicogenic headache Postoperative diagnoses= 1-greater occipital neuralgia. 2-cervicogenic headache Procedure= Bilateral Greater occipital nerve block Anesthesia= none. Estimated blood loss=minimal. Procedure indication= the patient had a history of severe chronic neck pain ,and headache, diagnosed with occipital neuralgia exam was positive for severe tenderness over the occipital nerve bilaterally, she will be a good candidate occipital nerve block, patient failed conservative management Procedure description= the patient was seen and identified in the preoperative holding area, risks and benefits and alternative of the procedure and possible complications discussed with the patient, and he agreed with the preceding, patient signed the consent, and vital signs were monitored and were stable throughout the procedure, patient was placed in the sitting position or table and the neck area was prepped and draped with a sterile fashion, vital signs were closely monitored during the procedure, 25-gauge needle advanced 1 inch lateral to the occipital protuberance on the right side, at the location of the right occipital nerve , then after negative aspiration for heme and CSF and there was no paresthesia during the injection, 6 ml of Robivacaine 0.5% and 40 mg of Depo-Medrol injected after negative aspiration, the needle removed, and the entire same procedure was repeated for the left Greater occipital nerve. Patient tolerated the procedure well without any complication, The patient returned to supine position after the back was cleaned and a Band- Aid applied, the patient transported to recovery room in stable condition and he was monitored for 30 minutes before he was discharged home and then patient was reexamined before going home and patient was discharged in stable condition and patient will follow up with the pain clinic in a few weeks.
[2024-10-27 14:34] VITALS: BP 111/63; PULSE 76; RESP 16
== END 2024-10-27 14:55 | disposition home or self-care (01) ==
LOC: ORPAIN 12:02
PROVIDERS: ATTEND Specialist
DX: M54.81 Occipital neuralgia (principal); G44.86 Cervicogenic headache
CPT/HCPCS: 64405